=== PATIENT | male | born 1935 | race Native Hawaiian/Other Pacific Islander ===

== ENCOUNTER 2017-12-07 08:56 | Outpatient (CLI) | payer OTHER, BC ==
[2017-12-07] MEDS ORDERED: HYDROCHLOROT12.5 M1 PO (10:57)
[2017-12-07] MEDS ORDERED: FLUC200T PO ×2 (10:58→22:49)
[2017-12-07] MEDS ORDERED: NYST100016 TOP (10:58)
[2017-12-07] MEDS ORDERED: CLOT1CRE11 (11:00)
[2017-12-07] MEDS ORDERED: MICROZIDE12.5 MG PO (22:32)
[2017-12-07] MEDS ORDERED: [UNRECOGNIZED DRUG - CODE] EX (22:33)
[2017-12-07] MEDS ORDERED: VITAMIN D22000 UNIT PO (22:45)
[2017-12-07] MEDS ORDERED: CLOT1CRE11 TOP (22:51)
[2017-12-24] MEDS ORDERED: CALC500T57 PO (12:18)
[2017-12-24] MEDS ORDERED: ESCI10TA PO (12:18)
[2017-12-24] MEDS ORDERED: MEDR2.5T19 PO (12:18)
[2017-12-24] MEDS ORDERED: HCTZ 25MG TAB PO (12:18)
[2017-12-24] MEDS ORDERED: SPIR50TA8 PO (12:18)
[2017-12-24] MEDS ORDERED: RISP0.25 PO ×2 (12:19)
[2017-12-24] MEDS ORDERED: POTA10CA3 PO (12:19)
[2017-12-24] MEDS ORDERED: MEMA5TAB PO (12:19)
[2017-12-24] MEDS ORDERED: DONE5TAB PO (12:19)
[2017-12-24] MEDS ORDERED: CYAN10009 IM (12:19)
== END 2017-12-07 08:59 | disposition short-term general hospital (02) ==
LOC: AMB 08:56
DX: R41.0 Disorientation, unspecified (principal)
CPT/HCPCS: A0425; A0427

== ENCOUNTER 2017-12-07 09:00 | Emergency (ER) | payer OTHER, BC ==
[~2017-12-07] VITALS: Ht 175.3 cm; Wt 99.8 kg
[2017-12-07 09:57] LABS: PLATELET COUNT 248 K/uL (142-355)
[2017-12-07 10:03] LABS: POTASSIUM 4.7 mmol/L (3.6-5.2); SODIUM 139 mmol/L (136-145)
[2017-12-07 10:30] LABS: PARTIAL THROMBOPLASTIN TIME 32.7 SECONDS (24.5-33.6)
[2017-12-07] MEDS ORDERED: HYDROCHLOROT12.5 M1 PO (10:57)
[2017-12-07] MEDS ORDERED: FLUC200T PO ×2 (10:58→22:49)
[2017-12-07] MEDS ORDERED: NYST100016 TOP (10:58)
[2017-12-07] MEDS ORDERED: CLOT1CRE11 (11:00)
[2017-12-07] MEDS ORDERED: MICROZIDE12.5 MG PO (22:32)
[2017-12-07] MEDS ORDERED: [UNRECOGNIZED DRUG - CODE] EX (22:33)
[2017-12-07] MEDS ORDERED: VITAMIN D22000 UNIT PO (22:45)
[2017-12-07] MEDS ORDERED: CLOT1CRE11 TOP (22:51)
[2017-12-24] MEDS ORDERED: HCTZ 25MG TAB PO (12:18)
[2017-12-24] MEDS ORDERED: SPIR50TA8 PO (12:18)
[2017-12-24] MEDS ORDERED: ESCI10TA PO (12:18)
[2017-12-24] MEDS ORDERED: CALC500T57 PO (12:18)
[2017-12-24] MEDS ORDERED: MEDR2.5T19 PO (12:18)
[2017-12-24] MEDS ORDERED: MEMA5TAB PO (12:19)
[2017-12-24] MEDS ORDERED: CYAN10009 IM (12:19)
[2017-12-24] MEDS ORDERED: DONE5TAB PO (12:19)
[2017-12-24] MEDS ORDERED: RISP0.25 PO ×2 (12:19)
[2017-12-24] MEDS ORDERED: POTA10CA3 PO (12:19)
== END 2017-12-07 13:41 | disposition other institution (70) ==
LOC: ED 09:00
PROVIDERS: Emergency Medicine
DX: F03.90 Unspecified dementia, unspecified severity, without behavioral disturbance, psychotic disturbance, mood disturbance, and anxiety (principal); Z86.73 Personal history of transient ischemic attack (TIA), and cerebral infarction without residual deficits
CPT/HCPCS: 80053; 80307; 80320; 80329; 81000; 85027; 85610; 85730; 93005; 99285